=== PATIENT | female | born 1990 | race Caucasian/White ===

== ENCOUNTER 2018-10-09 20:52 | Emergency (ER) | payer OTHER ==
--- NOTE | 2018-10-09 21:40 | PDOC ---
Rapid Medical Evaluation Time Seen by Provider: 10/09/18 21:37 Medical Evaluation: 10/09/18 21:37 I have performed a brief in person evaluation of this patient. 2017: Phil rodriguez LMP:09/29/2018 The patient presents with a chief complaints of: epigastric pain on and off x>1 year with nausea but denies vomiting/diarrhea Denies any cp, sob Pertinent physical exam findings: Epigastric pain on palp I have ordered the following: cbc/cmp, lipase, upreg The patient will proceed to the ED for further evaluation.
[2018-10-09 21:43] VITALS: BMI 30.2
[2018-10-09 22:05] LABS: HCG,QUALITATIVE URINE Negative
[2018-10-09 22:22] LABS: ALBUMIN 3.6 g/dl (3.4-5.0); ALK PHOS 92 U/L (45-117); ANION GAP 7 MMOL/L (8-16); BILIRUBIN,TOTAL 0.3 mg/dL (0.2-1); BLOOD UREA NITROGEN 7 mg/dL (7-18); CALCIUM 8.6 mg/dL (8.5-10.1); CHLORIDE 106 mmol/L (98-107); CO2 27 mmol/L (21-32); CREATININE 0.7 mg/dL (0.55-1.3); GLUCOSE,RANDOM 122 mg/dL (74-106); LIPASE 225 U/L (73-393); POTASSIUM 4.3 mmol/L (3.5-5.1); SGOT/AST 18 U/L (15-37); SGPT/ALT 22 U/L (13-61); SODIUM 139 mmol/L (136-145); TOT PROT 7.4 g/dl (6.4-8.2)
[2018-10-09 22:24] LABS: URINE APPEARANCE SLCLOUDY; URINE BILIRUBIN NEGATIVE (<2.0 mg/dL); URINE COLOR YELLOW; URINE GLUCOSE (UA) NEGATIVE (NEGATIVE); URINE KETONE NEGATIVE (NEGATIVE); URINE LEUK ESTERASE NEGATIVE (NEGATIVE); URINE NITRITE NEGATIVE (NEGATIVE); URINE PROTEIN NEGATIVE (NEGATIVE); URINE UROBILINOGEN NEGATIVE mg/dL (0.2-1.0)
--- NOTE | 2018-10-09 22:29 | PDOC ---
History of Present Illness - General Chief Complaint: Pain Stated Complaint: PAIN Time Seen by Provider: 10/09/18 21:37 History Source: Patient Exam Limitations: No Limitations, Language Barrier (boyfriend translating) - History of Present Illness Initial Comments: Pt is a 28 yo F, with PMH of cholecystitis and cholecystectomy (2016), who is presenting with complaints of epigastric pain x15 days, which is worsening. Pt states this pain started about 1-2 years ago, but has worsened over the past 15 days as she has felt more stressed and has been working more. The pt has been taking 150 mg zantac BID after meals to help with acid, but they are no longer working. Pt states the pain is epigastric, sharp, and is non-radiating. The pain is exacerbated by lying flat, and she feels nauseous and like "fluid is coming up my throat." Pt denies any fevers/chills, headache, vision changes, chest pain, palpitations, SOB, wheezing, vomiting, urinary symptoms, diarrhea/ constipation, or leg swelling. Pt denies any cigarette, alcohol, or drug use. Pt denies any recent travel or sick contacts. 10/09/18 23:44 Past History - Travel Traveled outside of the country in the last 30 days: No Close contact w/someone who was outside of country & ill: No - Past Medical History Allergies/Adverse Reactions: Allergies Allergy/AdvReac Type Severity Reaction Status Date / Time No Known Allergies Allergy Verified 10/09/18 21:38 Home Medications: Ambulatory Orders Ondansetron HCl [Zofran] 4 mg PO DAILY PRN #14 tablet 10/09/18 Pantoprazole Sodium [Protonix] 40 mg PO DAILY PRN #30 tablet. 10/09/18 Anemia: No Asthma: No Cancer: No Cardiac Disorders: No COPD: No Diabetes: No Dialysis: No GI Disorders: No HTN: No Hypercholesterolemia: No - Surgical History Cholecystectomy: Yes - Suicide/Smoking/Psychosocial Hx Smoking History: Never smoked Information on smoking cessation initiated: No Hx Alcohol Use: No Drug/Substance Use Hx: No Substance Use Type: None Review of Systems - Review of Systems Able to Perform ROS?: Yes Is the patient limited Monegasque proficient: No Constitutional: Yes: Weight Stable. No: Chills, Diaphoresis, Fever, Loss of Appetite, Malaise, Weakness HEENTM: No: Blurred Vision, Double Vision, Nose Congestion, Throat Pain, Throat Swelling, Difficulty Swallowing Respiratory: No: Cough, Orthopnea, Shortness of Breath Cardiac (ROS): No: Chest Pain, Edema, Irregular Heart Rate, Lightheadedness, Palpitations, Syncope, Chest Tightness ABD/GI: Yes: Nausea, Indigestion, Abdominal cramping. No: Abdominal Distended, Blood Streaked Bowels, Constipated, Diarrhea, Poor Appetite, Poor Fluid Intake, Rectal Bleeding, Vomiting, Tarry Stools : No: Burning, Dysuria, Frequency, Flank Pain, Hematuria, Pain, Urgency Musculoskeletal: No: Back Pain, Joint Pain Integumentary: No: Bruising, Rash Neurological: No: Headache, Weakness, Unsteady Gait, Ataxia, Dizziness Psychiatric: No: Sleep Pattern Change, Change in Appetite Endocrine: No: Increased Urine, Change in Weight Hematologic/Lymphatic: No: Anemia, Blood Clots, Easy Bleeding, Easy Bruising All Other Systems: Reviewed and Negative *Physical Exam - Vital Signs Last Vital Signs Temp Pulse Resp BP Pulse Ox 98.8 F 98 H 20 125/67 100 10/09/18 21:39 10/09/18 21:39 10/09/18 21:39 10/09/18 21:39 10/09/18 21:39 - Physical Exam General Appearance: Yes: Nourished, Appropriately Dressed, Apparent Distress, Mild Distress (HR 98, afebrile, pt appears mildly uncomfortable, holding epigastric area.), Obese HEENT: positive: EOMI, LAUREN, Normal ENT Inspection, Normal Voice, Symmetrical, Pharynx Normal, Hearing Grossly Normal. negative: Scleral Icterus (R), Scleral Icterus (L), Pharyngeal Erythema, Tonsillar Exudate, Tonsillar Erythema, Rhinorrhea Neck: positive: Trachea midline, Normal Thyroid, Supple. negative: Tender, Rigid, Lymphadenopathy (R), Lymphadenopathy (L) Respiratory/Chest: positive: Lungs Clear, Normal Breath Sounds. negative: Chest Tender, Respiratory Distress, Accessory Muscle Use, Wheezing Cardiovascular: positive: Regular Rhythm, Regular Rate, S1, S2. negative: Edema , JVD, Murmur Vascular Pulses: Carotid (R): 4+, Carotid (L): 4+ Gastrointestinal/Abdominal: positive: Normal Bowel Sounds, Tender (epigastric, with mild guarding during palpation of epigastric area), Flat, Soft, Guarding. negative: Organomegaly, Pulsatile Mass, Distended, Rebound, Hepatomegaly, Spleenomegaly Rectal Exam: positive: deferred Lymphatic: negative: Adenopathy, Tenderness Musculoskeletal: positive: Normal Inspection. negative: CVA Tenderness Extremity: positive: Normal Capillary Refill, Normal Inspection, Normal Range of Motion, Pelvis Stable. negative: Tender, Pedal Edema Integumentary: positive: Normal Color, Dry, Warm. negative: Jaundice, Clammy, Diaphoresis, Rash Neurologic: positive: adult basic education teacher II-XII NML intact, Fully Oriented, Alert, Normal Mood/ Affect, Normal Response, Motor Strength 03/21 ED Treatment Course - LABORATORY CBC & Chemistry Diagram: 10/09/18 21:53 10/09/18 21:53 - ADDITIONAL ORDERS Additional order review: Laboratory Results 10/09/18 10/09/18 21:53 21:53 Sodium 139 Potassium 4.3 Chloride 106 Carbon Dioxide 27 Anion Gap 7 L BUN 7 Creatinine 0.7 Creat Clearance w eGFR > 60 Random Glucose 122 H Calcium 8.6 Total Bilirubin 0.3 AST 18 ALT 22 Alkaline Phosphatase 92 Total Protein 7.4 Albumin 3.6 Lipase 225 Urine Color Yellow Urine Appearance Slcloudy Urine pH 5.0 Ur Specific [place] 1.020 Urine Protein Negative Urine Glucose (UA) Negative Urine Ketones Negative Urine Blood Negative Urine Nitrite Negative Urine Bilirubin Negative Urine Urobilinogen Negative Ur Leukocyte Esterase Negative Urine HCG, Qual Negative Medical Decision Making - Medical Decision Making Pt was seen at bedside, also will be seen by attending Dr. Young. Pt presenting with complaints of epigastric pain x15 days, which is worsening. Pt has PMH of cholecystitis and cholecystectomy x1 year ago. Pt has been taking 150 mg zantac BID after meals to help with acid, but they are no longer working. Pt states the pain is epigastric, sharp, and is non-radiating. The pain is exacerbated by lying flat, and she feels nauseous and like "fluid is coming up my throat." Pt denies any fevers/chills, headache, vision changes, chest pain, palpitations, SOB, wheezing, vomiting, urinary symptoms, diarrhea/ constipation, or leg swelling. PE showed mild guarding and tenderness during palpation of the epigastric area. No oropharyngeal edema or erythema. Lung and heart sounds clear, no wheezing. Considering acid reflux/GERD vs cholelithiasis/choledocholithiasis vs pancreatitis vs enteritis. Low suspicion of ACS, as pt has no cardiac history, non-smoker, young and otherwise healthy. Ordered work-up including CBC, CMP, beta-hcg, UA, lipase. Provided 1L NS, 30 mg mylanta, and 20 mg IV pepcid for improvement of nausea and reflux. Will continue to reassess pt and monitor for symptomatic improvement. 10/09/18 23:02 Pt states epigastric pain much improved. Pt able to tolerate small PO fluid challenge while in the department without any vomiting. Considering normal lab results pt can be discharged to home with follow-up. Pt advised to follow-up with PCP during her scheduled appointment time with Dr. Rutledge, and has been referred to GI (Dr. Dillard). Strict return precautions provided with pt understanding. 10/09/18 23:57 *DC/Admit/Observation/Transfer Diagnosis at time of Disposition: Acid reflux Qualifiers: Esophagitis presence: esophagitis presence not specified Qualified Code(s): K21.9 - Gastro-esophageal reflux disease without esophagitis - Discharge Dispostion Disposition: HOME Condition at time of disposition: Improved Decision to Admit order: No - Referrals Referrals: Reji Rutledge MD [Staff Physician] - Enrique Dillard MD [Staff Physician] - - Patient Instructions Printed Discharge Instructions: DI for Gastroesophageal Reflux Disease (GERD) Additional Instructions: You were seen in the ER today for acid reflux. The results of your labs today were normal. Please follow-up with your new primary care doctor during your scheduled appointment time, to discuss your visit and make sure your symptoms have improved. I have also provided a referral for the GI doctor. Please return to the ER if you have any worsening pain, development of fevers or chills, loss of consciousness, inability to tolerate food or fluids, blood in vomit or stool , or any other concerns. Print Language: PERSIAN - Post Discharge Activity
[2018-10-09 22:31] LABS: BASO % 0.5 % (0-2.0); EOS % 1.1 % (0-4.5); HEMATOCRIT 38.9 % (32.4-45.2); HEMOGLOBIN 12.8 GM/dL (10.7-15.3); LYMPH % 25.6 % (8-40); MCH 30.3 pg (25.7-33.7); NEUT % 67.8 % (42.8-82.8); PLATELET COUNT 269 K/MM3 (134-434); RBC 4.23 M/mm3 (3.60-5.2); RDW 13.7 % (11.6-15.6); WHITE BLOOD COUNT 8.4 K/mm3 (4.0-10.0)
[2018-10-09] MEDS ORDERED: MAG HYDROX/AL HYDROX/SIMETH 30 ML UNIT-DOSE CUP PO ONE (22:44)
[2018-10-09] MEDS ORDERED: FAMOTIDINE 20 MG/50 ML IVPB 20 MG/50 ML MG IVPB ONE ×2 (22:44→22:59)
[2018-10-09] MEDS ORDERED: SODIUM CHLORIDE 1,000 ML IV STA (22:46)
[2018-10-09] MEDS ORDERED: MAG HYDROX/AL HYDROX/SIMETH 30 ML UNIT-DOSE CUP ONE (22:59)
--- NOTE | 2018-10-09 23:46 | PDOC ---
Attending Attestation - HPI HPI: 10/10/18 00:20 The patient is a 28 year old female, with a significant past medical history of cholecystitis ( s/p cholecystectomy (2017)), who presents to the emergency department with, 15 days of worsening epigastric pain. Patient notes the pain worsened today with associated nausea after eating [place] food. She denies recent fevers, chills, headache or dizziness. She denies recent diarrhea or constipation. She denies recent dysuria, frequency, urgency or hematuria. Allergies: NKDA Past surgical history: cholecystectomy. <Lyle Davidson - Last Filed: 10/10/18 00:20> - Resident Resident Name: Jennifer Garrett - ED Attending Attestation I have performed the following: I have examined & evaluated the patient, The case was reviewed & discussed with the resident, I agree w/resident's findings & plan, Exceptions are as noted - Physicial Exam PE: 10/10/18 02:10 Gen: aaox3, uncomfortable heart: +s1s2 reg lungs: cta b/l abd: epigastric ttp, no rebound or guarding, soft ext: no c/c/e - Medical Decision Making 10/09/18 23:45 I, Dr. Donna Young DO, attest that this document has been prepared under my direction and personally reviewed by me in its entirety. I further attest, that it accurately reflects all work, treatment, procedures and medical decision -making performed by me. 10/09/18 23:45 a/p: 28yo female with epigastric pain that radiates up her chest with sour taste in the back of her mouth -hx of cholecystectomy 1 year ago -no ruq pain -suspect gastritis with acid reflux -will send labs -will medicate and re-eval 10/10/18 02:11 pt feeling better after being medicated labs reviewed pt stable for dc to home resident discussed labs and meds with the patient <Donna Young - Last Filed: 10/10/18 02:11> Attestations - Attestations 10/10/18 00:20 Documentation prepared by Lyle Davidson, acting as medical insurance claims processor for Donna Young DO. <Lyle Davidson - Last Filed: 10/10/18 00:20>
[2018-10-10 00:13] VITALS: BP 119/71; PULSE 91; TEMP 978
== END 2018-10-10 00:31 | disposition home or self-care (01) ==
LOC: JER 20:52
PROC: 3E033GC Introduction of Other Therapeutic Substance into Peripheral Vein, Percutaneous Approach (ICD-10-PCS; principal; 2018-10-09)
DX: K21.9 Gastro-esophageal reflux disease without esophagitis (principal)
CPT/HCPCS: 36415; 80053; 81003; 83690; 84703; 85025; 96365; 99283-25; J7030

== ENCOUNTER 2019-08-21 12:31 | Emergency (ER) | payer OTHER ==
[2019-08-21 12:44] VITALS: TEMP 98.6; BMI 34.0
[2019-08-21] MEDS ORDERED: PANTOPRAZOLE SODIUM 40 MG in SODIUM CHLORIDE 100 ML IVPB ONE (12:49)
[2019-08-21] MEDS ORDERED: KETOROLAC TROMETHAMINE 30 MG/1 ML VIAL IVPUSH ONE (12:49)
[2019-08-21] MEDS ORDERED: SODIUM CHLORIDE 1,000 ML IV STA (12:49)
[2019-08-21] MEDS ORDERED: ONDANSETRON 4 MG/2 ML VIAL IVPUSH ONE ×2 (12:49→16:41)
[2019-08-21] MEDS ORDERED: PANTOPRAZOLE SODIUM 40 MG/100 ML BAG IVPB ONE (12:56)
[2019-08-21] MEDS ORDERED: ONDANSETRON 4 MG/2 ML VIAL ONE ×2 (12:56→16:39)
--- NOTE | 2019-08-21 13:25 | PDOC ---
History of Present Illness - General Chief Complaint: Diarrhea Stated Complaint: DIARRHEA/VOMITING Time Seen by Provider: 08/21/19 12:43 History Source: Patient Exam Limitations: No Limitations - History of Present Illness Travel History: No Initial Comments: 08/21/19 13:11 29-year-old female presents to ED with complaints of nausea vomiting and diarrhea for the past 3 days without fever, chills, lower abdominal pain, urinary complaints, irregular menses. Patient states does have upper abdominal intermittent sharp pain and denies any history of GI disorders such as diverticulitis or GERD. Patient does have history of cholecystectomy. Timing/Duration: reports: intermittent Quality: reports: moderate, burning, sharpness Abdominal Pain Onset Location: reports: epigastric Pain Radiation: reports: no radiation Activities at Onset: reports: none Aggravating Factors: improves with: None Alleviating Factors: improves with: None Past History - Past Medical History Allergies/Adverse Reactions: Allergies Allergy/AdvReac Type Severity Reaction Status Date / Time No Known Allergies Allergy Verified 08/21/19 13:18 Home Medications: Ambulatory Orders NK [No Known Home Medication] 08/21/19 Anemia: No Asthma: No Cancer: No Cardiac Disorders: No COPD: No Diabetes: No Dialysis: No GI Disorders: No HTN: No Hypercholesterolemia: No - Surgical History Cholecystectomy: Yes - Immunization History Td Vaccination: Yes TDAP Vaccination: Yes Immunization Up to Date: Yes - Psycho Social/Smoking Cessation Hx Smoking History: Never smoked Have you smoked in the past 12 months: No Information on smoking cessation initiated: No Hx Alcohol Use: No Drug/Substance Use Hx: No Substance Use Type: None Patient Lives Alone: No Lives with/in: spouse/SO Review of Systems - Review of Systems Able to Perform ROS?: Yes Constitutional: No: Symptoms Reported HEENTM: No: Symptoms Reported Respiratory: No: Symptoms reported Cardiac (ROS): No: Symptoms Reported ABD/GI: Yes: Diarrhea, Nausea, Vomiting, Abdominal cramping : No: Symptoms Reported Musculoskeletal: No: Symptoms Reported Integumentary: No: Symptoms Reported Neurological: No: Symptoms reported *Physical Exam - Vital Signs Last Vital Signs Temp Pulse Resp BP Pulse Ox 98.6 F 95 H 16 119/85 100 08/21/19 12:34 08/21/19 12:34 08/21/19 12:34 08/21/19 12:34 08/21/19 12:34 - Physical Exam General Appearance: Yes: Nourished, Appropriately Dressed. No: Apparent Distress HEENT: positive: EOMI. negative: Pale Conjunctivae Neck: positive: Normal Thyroid Respiratory/Chest: positive: Lungs Clear, Normal Breath Sounds. negative: Respiratory Distress, Accessory Muscle Use Cardiovascular: positive: Regular Rhythm, Regular Rate. negative: Murmur Gastrointestinal/Abdominal: positive: Soft, Tenderness (Epigastric) Musculoskeletal: negative: CVA Tenderness Extremity: positive: Normal Inspection Integumentary: positive: Normal Color, Warm, Moist Neurologic: positive: Motor Strength 5/5 ( ambulatory) ED Treatment Course - LABORATORY CBC & Chemistry Diagram: 08/21/19 13:00 08/21/19 13:00 Medical Decision Making - Medical Decision Making 08/21/19 13:31 Chief complaint: Nausea vomiting diarrhea with upper abdominal sharp pain for the past 2-3 days no meds taken no other complaints. History of cholecystectomy Exam: Vital signs stable epigastric tenderness noted on exam plan: Labs, urine urine , IV fluids, Zofran, Protonix, Toradol 08/21/19 15:53 Laboratory Tests 08/21/19 08/21/19 08/21/19 13:00 13:56 13:56 WBC 7.4 Hgb 14.1 Hct 41.2 Absolute Neuts (auto) 5.3 Urine Nitrite Negative Urine Bilirubin Negative Ur Leukocyte Esterase 1+ H Urine WBC (Auto) 7 Urine HCG, Qual Negative Chemistry hemolyzed and resent. Patient states feeling much better.
[2019-08-21 13:45] LABS: BASO % 0.4 % (0-2.0); EOS % 0.1 % (0-4.5); HEMATOCRIT 41.2 % (32.4-45.2); HEMOGLOBIN 14.1 GM/dL (10.7-15.3); LYMPH % 19.1 % (8-40); MCH 30.6 pg (25.7-33.7); MCHC 34.2 g/dl (32.0-36.0); MEAN CELL VOLUME 89.5 fl (80-96); MEAN PLT VOLUME 9.3 fl (7.5-11.1); MONO % 8.6 % (3.8-10.2); NEUT % 71.8 % (42.8-82.8); PLATELET COUNT 250 K/MM3 (134-434); RDW 14.4 % (11.6-15.6); WHITE BLOOD COUNT 7.4 K/mm3 (4.0-10.0)
[2019-08-21 14:10] LABS: EPI CELLS 8.6 /HPF (0-5/HPF); HYALINE CASTS 3 /lpf (0-8); PH,URINE 6.5 (5.0-8.0); URINE APPEARANCE CLEAR; URINE BACTERIA 170.5 /hpf (NEGATIVE); URINE BILIRUBIN NEGATIVE (NEGATIVE); URINE COLOR YELLOW; URINE GLUCOSE (UA) NEGATIVE (NEGATIVE); URINE KETONE NEGATIVE (NEGATIVE); URINE LEUK ESTERASE 1+ (NEGATIVE); URINE NITRITE NEGATIVE (NEGATIVE); URINE PROTEIN TRACE (NEGATIVE); URINE RBC 2 /hpf (0-4); URINE UROBILINOGEN 0.2 mg/dL (0.2-1.0); URINE WBC 7 /hpf (0-5)
[2019-08-21] MEDS ORDERED: KETOROLAC TROMETHAMINE 30 MG/1 ML VIAL ONE (15:10)
[2019-08-21 16:12] LABS: ALBUMIN 3.3 g/dl (3.4-5.0); BILIRUBIN,TOTAL 0.3 mg/dL (0.2-1); BLOOD UREA NITROGEN 6.9 mg/dL (7-18); CALCIUM 7.8 mg/dL (8.5-10.1); CREATININE 0.8 mg/dL (0.55-1.3); POTASSIUM 3.8 mmol/L (3.5-5.1)
--- NOTE | 2019-08-21 16:20 | PDOC ---
*Physical Exam - Vital Signs Last Vital Signs Temp Pulse Resp BP Pulse Ox 98.6 F 95 H 16 119/85 100 08/21/19 12:34 08/21/19 12:34 08/21/19 12:34 08/21/19 12:34 08/21/19 12:34 - Physical Exam General Appearance: Yes: Appropriately Dressed. No: Apparent Distress Gastrointestinal/Abdominal: positive: Normal Bowel Sounds, Soft. negative: Tender ED Treatment Course - LABORATORY CBC & Chemistry Diagram: 08/21/19 13:00 08/21/19 15:15 - ADDITIONAL ORDERS Additional order review: Laboratory Results 08/21/19 08/21/19 08/21/19 15:15 13:56 13:56 Sodium 138 Potassium 3.8 Chloride 104 Carbon Dioxide 26 Anion Gap 8 BUN 6.9 L Creatinine 0.8 Est GFR (CKD-EPI)AfAm 116.28 Est GFR (CKD-EPI)NonAf 100.33 Random Glucose 79 Calcium 7.8 L Magnesium 2.0 Total Bilirubin 0.3 AST 28 ALT 44 Alkaline Phosphatase 63 Total Protein 7.0 Albumin 3.3 L Lipase 65 L Urine Color Yellow Urine Appearance Clear Urine pH 6.5 D Ur Specific [place] 1.016 Urine Protein Trace Urine Glucose (UA) Negative Urine Ketones Negative Urine Blood Trace Urine Nitrite Negative Urine Bilirubin Negative Urine Urobilinogen 0.2 Ur Leukocyte Esterase 1+ H Urine WBC (Auto) 7 Urine RBC (Auto) 2 Urine Casts (Auto) 3 U Epithel Cells (Auto) 8.6 U Sm Round Cell (Auto) None seen Urine Bacteria (Auto) 170.5 Urine HCG, Qual Negative 08/21/19 13:00 Sodium Cancelled Potassium Cancelled Chloride Cancelled Carbon Dioxide Cancelled Anion Gap Cancelled BUN Cancelled Creatinine Cancelled Est GFR (CKD-EPI)AfAm Cancelled Est GFR (CKD-EPI)NonAf Cancelled Random Glucose Cancelled Calcium Cancelled Magnesium Cancelled Total Bilirubin Cancelled AST Cancelled ALT Cancelled Alkaline Phosphatase Cancelled Total Protein Cancelled Albumin Cancelled Lipase Cancelled Urine Color Urine Appearance Urine pH Ur Specific [place] Urine Protein Urine Glucose (UA) Urine Ketones Urine Blood Urine Nitrite Urine Bilirubin Urine Urobilinogen Ur Leukocyte Esterase Urine WBC (Auto) Urine RBC (Auto) Urine Casts (Auto) U Epithel Cells (Auto) U Sm Round Cell (Auto) Urine Bacteria (Auto) Urine HCG, Qual 08/21/19 13:00 RBC 4.60 MCV 89.5 MCHC 34.2 RDW 14.4 MPV 9.3 Neutrophils % 71.8 Lymphocytes % 19.1 D Monocytes % 8.6 Eosinophils % 0.1 D Basophils % 0.4 - Medications Given in the ED: ED Medications Discontinued Medications Generic Name Dose Route Start Last Admin Trade Name Shayla PRN Reason Stop Dose Admin Pantoprazole Sodium 40 mg/ 100 mls @ 200 mls/hr 08/21/19 12:49 08/21/19 13:17 Sodium Chloride IVPB 08/21/19 13:18 200 mls/hr ONCE ONE Administration Sodium Chloride 1,000 mls @ 1,000 mls/hr 08/21/19 12:49 08/21/19 13:17 Normal Saline - IV 08/21/19 13:48 1,000 mls/hr ASDIR STA Administration Ketorolac Tromethamine 30 mg 08/21/19 12:49 08/21/19 15:13 Toradol Injection - IVPUSH 08/21/19 12:50 30 mg ONCE ONE Administration Ondansetron HCl 4 mg 08/21/19 12:49 08/21/19 13:17 Zofran Injection IVPUSH 08/21/19 12:50 4 mg ONCE ONE Administration ED Progress Note - Progress Note Progress Note: 08/21/19 16:19 Rec'd pt from [facility]. Pt with diarhea and upper abdominal pain x3 days. Pt currently denies all c/o and is requesting d/c. Lab testing is unremarkable with CMP pending. 08/21/19 16:20 Medical Decision Making - Medical Decision Making 08/21/19 16:21 CMP is notable for Ca- 7.8. Otherwise unremarkable. d/c home Discharge - Discharge Information Problems reviewed: Yes Clinical Impression/Diagnosis: Gastroenteritis Condition: Stable Disposition: HOME - Admission No - Follow up/Referral - Patient Discharge Instructions Additional Instructions: Drink plenty of fluids. Eat a bland diet and add flavors as tolerated. Your emergency visit is incomplete until you follow up with your regular doctor. Return to the ER for any concerns. - Post Discharge Activity
[2019-08-21 17:00] VITALS: BP 120/78; PULSE 83
== END 2019-08-21 16:38 | disposition home or self-care (01) ==
LOC: JER 12:31
PROC: 3E033GC Introduction of Other Therapeutic Substance into Peripheral Vein, Percutaneous Approach (ICD-10-PCS; principal; 2019-08-21)
PROC: 3E033GC Introduction of Other Therapeutic Substance into Peripheral Vein, Percutaneous Approach (ICD-10-PCS; 2019-08-21)
PROC: 3E033GC Introduction of Other Therapeutic Substance into Peripheral Vein, Percutaneous Approach (ICD-10-PCS; 2019-08-21)
PROC: 3E0333Z Introduction of Anti-inflammatory into Peripheral Vein, Percutaneous Approach (ICD-10-PCS; 2019-08-21)
DX: K52.9 Noninfective gastroenteritis and colitis, unspecified (principal)
CPT/HCPCS: 36415; 80053; 81003; 83690; 83735; 84703; 85025; 87077; 87086; 96365; 96375; 96376; 99282-25; J7030